=== PATIENT | female | born 1980 | race Caucasian/White ===

== ENCOUNTER 2016-08-27 11:23 | Emergency (ER) | payer OTHER ==
[2016-08-27 11:28] VITALS: RESP 16
[2016-08-27] MEDS ORDERED: TDAP ADULT 0.5 ML INJ (BOOSTRIX) IM ONE (12:08)
--- NOTE | 2016-08-27 13:32 | EDPHY ---
H & P Stated Complaint: cutting hedges 1100, cut finger HPI/ROS: CHIEF COMPLAINT: Finger laceration HISTORY OF PRESENT ILLNESS: Patient was trimming her wishes today when she accidentally cut her left index finger with head cultures. This is over the volar aspect of the left index finger, middle phalanx. No motor sensory deficits. [id number] pain. Bleeding maintained with simple pressure. No numbness or tingling distally. Pain with flexion and movement. No pain at rest. No radiating pain. No injuries elsewhere. She is uncertain when her last tetanus shot was. No other associated complaints or modifying factors. TIME OF INJURY: 11:00 a.m. TETANUS STATUS: Uncertain REVIEW OF SYSTEMS: Ten systems reviewed and are negative unless otherwise noted in the HPI EXAMINATION General Appearance: Alert, no distress Head: normocephalic, atraumatic Cardiovascular: Pulses normal throughout. Symmetric radial pulses 2+. Brisk cap refill all 10 fingers Neurological: A&O, sensory symmetric, strength symmetric Skin: Warm and dry, no rash. There is a stellate laceration of the left index finger, volar aspect, middle phalanx. Total of 1.25 cm. There is no exposure of the underlying flexor tendons. No foreign body present. Extremities: Mild tenderness of the left index finger over the laceration. There is full flexion-extension including the superficialis and profundus of the index finger. No sensory deficits. Two point sensation intact. Good strength of the interossei. Neurovascular intact distally. DIFFERENTIAL DIAGNOSES: Including but not limited to laceration, complex laceration, laceration with foreign body, laceration with tendon injury MDM: 12:10 p.m. Laceration to the left index finger by Head clippers. This is over the middle phalanx. I have applied a digital block. Proceed with x-ray, irrigation and closure. No evidence of tendinous injury. 1:30 p.m. Laceration of the left index finger that has been irrigated and repaired. I do not appreciate any fracture foreign body on the x-ray. Official radiology interpretation is pending. She has been given a Tdap vaccination here. Commence Augmentin prophylaxis. Wound care daily as discussed. Follow up with primary care physician or here in 7-10 days for suture removal. Return sooner for signs of infection as discussed. PROCEDURE: Digital Block Indication: Finger laceration Consent: Verbal Location: Left index finger Anesthesia: Lidocaine 1% plain, 0.25% Marcaine plain, 5mL Description: Base of the left index finger was prepped with chlorhexidine. The above solution was infused without complication. Tolerated well. Good anesthesia. Complications: None PROCEDURE: Laceration repair Consent: Verbal Location: Left index finger, volar, middle phalanx Length of repair: 1.25 cm, stellate Complexity: Simple Layer involvement: Single Anesthesia: Digital block Irrigation: Extensive Debridement: None Procedure description: Following good anesthesia, the wound was copiously irrigated. Wound bed was explored and there is no foreign body noted. There is no exposure of or injury to the flexor apparatus. Wound borders were approximated well with good hemostasis. Tolerated well without complication. Suture/Staple material: 5-0 Ethilon, 5 simple interrupted sutures Wound care: Routine as discussed Suture/Staple removal: 7-10 Days SUTURE STAPLE REMOVAL: 7-10 days ED Precautions: Worsening pain. Erythema, edema, cyanosis, pallor, paresthesia or anesthesia. SUPERVISION: This patient was independently evaluated without direct examination by the attending physician. Case was discussed with attending physician. Source: Patient Exam Limitations: No limitations - Personal History LMP (Females 10-55): 22-28 Days Ago Current Tetanus/Diphtheria Vaccine: No Current Tetanus Diphtheria and Acellular Pertussis (TDAP): No - Medical/Surgical History Hx Asthma: No Hx Chronic Respiratory Disease: No Hx Diabetes: No Hx Cardiac Disease: No Hx Renal Disease: No Hx Cirrhosis: No Hx Alcoholism: No Hx HIV/AIDS: No Hx Splenectomy or Spleen Trauma: No Other PMH: pmh:tonsels, dental. psh: knee, - Social History Smoking Status: Never smoked Constitutional: Initial Vital Signs Temperature (C) 97.7 F 08/27/16 11:26 Heart Rate 73 08/27/16 11:26 Respiratory Rate 16 08/27/16 11:26 Blood Pressure 111/54 L 08/27/16 11:26 O2 Sat (%) 100 08/27/16 11:26 O2 Delivery Mode Room Air Allergies/Adverse Reactions: No Known Allergies Allergy (Unverified 06/14/10 18:11) Home Medications: Medication Instructions Recorded Amoxicillin/Clavulanate Pot 875 mg PO BID #20 tab 08/27/16 [Augmentin 875 MG TAB (*)] Levothyroxine Sodium [Synthroid] 300 mcg PO 08/27/16 Medical Decision Making - Data Points Medications Given: Discontinued Medications Diphtheria/Tetanus/Acell Pertussis (Boostrix) 0.5 ml IM .ONCE ONE Stop: 08/27/16 12:09 Last Admin: 08/27/16 12:56 Dose: 0.5 ml Departure - Departure Disposition: Home, Routine, Self-Care Clinical Impression: Laceration of finger of left hand Qualifiers: Encounter type: initial encounter Finger: index finger Damage to nail status: without damage Foreign body presence: without foreign body Qualified Code(s): S61.211A - Laceration without foreign body of left index finger without damage to nail, initial encounter Condition: Good Instructions: Care For Your Stitches (ED), Laceration (ED) Additional Instructions: 1. Daily wound care as discussed 2. Light duty with the left hand until sutures removed 3. Follow up here with primary care physician in 7-10 days for suture removal 4. Return here for any signs of infection as discussed Referrals: NONE *PRIMARY CARE P,. [Primary Care Provider] - As per Instructions Abner Shaw MD [Medical Doctor] - As per Instructions Smith Og MD [Medical Doctor] - As per Instructions Prescriptions: Amoxicillin/Clavulanate Pot [Augmentin 875 MG TAB (*)] 875 mg PO BID #20 tab
[2016-08-27 13:54] VITALS: BP 115/58; PULSE 72; TEMP 98.1; O2SAT 97
== END 2016-08-27 13:53 | disposition home or self-care (01) ==
PROC: 0HQGXZZ Repair Left Hand Skin, External Approach (ICD-10-PCS; principal; 2016-08-27)
DX: S61.211A Laceration without foreign body of left index finger without damage to nail, initial encounter (principal); Z23 Encounter for immunization; W26.9XXA Contact with unspecified sharp object(s), initial encounter